=== PATIENT | male | born 1965 | race Caucasian/White ===

== ENCOUNTER 2023-11-24 04:01 | Day surgery (SDC) | payer OTHER ==
[2023-11-24] VITALS (226 sets, daily range): BP systolic 100–189; BP diastolic 61–113
[~2023-11-24] VITALS: Ht 190.5 cm; Wt 85.5 kg
[2023-11-24] MEDS ORDERED: diazePAM 5 MG/TAB PO PRN ×2 (07:30→08:30)
[2023-11-24] MEDS ORDERED: FAMOTIDINE 20 MG/TAB PO PRN (07:30)
[2023-11-24] MEDS ORDERED: cloNIDine HCL 0.1 MG/TAB PO PRN (07:30)
[2023-11-24] MEDS ORDERED: LACTATED RINGER'S 1,000 ML IV PRN ×3 (07:30→19:00)
[2023-11-24] MEDS ORDERED: CYANOCOBALAMIN 500 MCG/TAB ( B12) PO PRN (07:30)
[2023-11-24] MEDS ORDERED: SCOPOLAMINE 1.5 MG DIS TD PRN (07:30)
[2023-11-24] MEDS ORDERED: PANTOPRAZOLE SODIUM Sesquihydr 40 MG/TAB PO PRN (07:30)
[2023-11-24] MEDS ORDERED: ALBUTEROL SULFATE 2.5 MG VIAL IN PRN (07:30)
[2023-11-24] MEDS ORDERED: ASCORBIC ACID 4,000 MG in SODIUM CHLORIDE 0.9% 1,000 ML IV SCH (08:00)
[2023-11-24] MEDS ORDERED: GLYCOPYRROLATE 0.2 MG/ML IV ONE (08:15)
[2023-11-24 08:46] LABS: BASO% 0.3 % (0-3); HEMATOCRIT 40.7 % (39.0-50.0); HEMOGLOBIN 13.7 g/dl (14.0-18.0); IMMATURE GRANULOCYTES 0.2 % (0.0-5.0); LYMPH% 33.8 % (15-41); MEAN CELL VOLUME 93.1 fL CALC (80.0-100.0); MEAN CORPUSCULAR HGB 31.4 pG CALC (26.0-32.0); MEAN CORPUSCULAR HGB CONC 33.7 g/dL CAL (32.0-36.0); MONO% 12.3 % (2-13); NEUT# 3.04 thou/uL (1.82-7.42); NEUT% 51.4 % (42-76); RED BLOOD COUNT 4.37 mill/uL (4.70-6.10); RED CELL DISTRI WIDTH 11.6 % (11.5-15.5)
[2023-11-24 09:03] LABS: ALBUMIN 4.5 g/dL (3.2-5.0); BILIRUBIN, TOTAL 0.6 mg/dL (0.2-1.3); CREATININE 0.8 mg/dL (0.7-1.3); POTASSIUM 3.8 mmol/l (3.5-5.1); TOTAL PROTEIN 6.7 g/dL (6.3-8.2)
[2023-11-24] MEDS ORDERED: BENICAR40 MG PO (09:04)
[2023-11-24] MEDS ORDERED: METOPROLOL100 M1 PO (09:04)
[2023-11-24] MEDS ORDERED: ALFUZOSIN HCL E10 MG PO (09:05)
[2023-11-24] MEDS ORDERED: ALPRAZOLAM2 M1 PO (09:06)
[2023-11-24] MEDS ORDERED: LIDOCAINE HCL 1% (10MG/ML) 100 MG/10 ML MDV VT PRN ×2 (09:25)
[2023-11-24] MEDS ORDERED: SUCCINYLCHOLINE CHLORIDE 20 MG/ML 10ML VIAL IV PRN (09:25)
[2023-11-24] MEDS ORDERED: ONDANSETRON HCl 4 MG/2 ML SDV IV PRN ×3 (09:25→19:00)
[2023-11-24] MEDS ORDERED: diazePAM 5 MG/TAB VT PRN (09:25)
[2023-11-24] MEDS ORDERED: ROCURONIUM BROMIDE 10 MG/ML 5ML VIAL IV PRN (09:25)
[2023-11-24] MEDS ORDERED: MIDAZOLAM HCL 2 MG/2 ML VIAL IV PRN (09:25)
[2023-11-24] MEDS ORDERED: DiphenhydrAMINE HCL 50 MG/ML SDV IV PRN (09:25)
[2023-11-24] MEDS ORDERED: DEXAMETHASONE SODIUM PHOSPHATE PF 10 MG/ML SDV IV PRN ×2 (09:25→19:00)
[2023-11-24] MEDS ORDERED: cloNIDine HYDROCHLORIDE 100 MCG/ML 10 ML INJ IV PRN (09:25)
[2023-11-24] MEDS ORDERED: STERILE WATER FOR IRRIGATION 1,000 ML BTL IR PRN (09:25)
[2023-11-24] MEDS ORDERED: POTASSIUM CHLORIDE 20 MEQ/100 ML BAG IV PRN (09:25)
[2023-11-24] MEDS ORDERED: PROPOFOL 10 MG/ML 100ML VIAL IV PRN (09:25)
[2023-11-24] MEDS ORDERED: cloNIDine HCL 0.1 MG/TAB VT PRN (09:25)
[2023-11-24] MEDS ORDERED: MAGNESIUM SULFATE HEPTAHYDRATE 100 ML IV PRN (09:25)
[2023-11-24] MEDS ORDERED: NALTREXONE HCL 50 MG/TAB VT PRN (09:25)
[2023-11-24] MEDS ORDERED: PROPOFOL 100 ML IV PRN (09:25)
[2023-11-24] MEDS ORDERED: OCTREOTIDE ACETATE 100 MCG/VIAL SDV SC PRN (09:25)
[2023-11-24] MEDS ORDERED: THIAMINE HCL 100 MG/ML 2ML VIAL IV PRN (09:25)
[2023-11-24] MEDS ORDERED: LIDOCAINE HCL 1% (10MG/ML) 100 MG/10 ML MDV IV PRN (09:25)
[2023-11-24] MEDS ORDERED: KLONOPIN2 MG PO (17:07)
[2023-11-24] MEDS ORDERED: CLONIDINE0.1 MG PO (17:07)
[2023-11-24] MEDS ORDERED: NALTREXONE50 MG PO (17:07)
[2023-11-24] MEDS ORDERED: PROMETHAZINE HCL 12.5 MG in SODIUM CHLORIDE 0.9% 50 ML IV PRN (19:00)
[2023-11-24] MEDS ORDERED: HALOPERIDOL LACTATE 5 MG/ML SDV IV PRN (19:00)
[2023-11-24] MEDS ORDERED: ACETAMINOPHEN 1,000 MG/100 ML VIAL IV PRN (19:00)
[2023-11-24] MEDS ORDERED: PROMETHAZINE HCL 25 MG in SODIUM CHLORIDE 0.9% 50 ML IV PRN (19:00)
[2023-11-24] MEDS ORDERED: ACETAMINOPHEN 500 MG TAB PO PRN (19:00)
[2023-11-24] MEDS ORDERED: KETOROLAC TROMETHAMINE 30 MG/ML SDV IV PRN (19:00)
[2023-11-24] MEDS ORDERED: PATIENT' OWN MED CONTROLLED 1 EA DOSE IV PRN (21:00)
[2023-11-24] MEDS ORDERED: diazePAM 10 MG/2 ML VIAL IV PRN (21:00)
[2023-11-24] MEDS ORDERED: clonazePAM 1 MG/TAB PO SCH (23:00)
[2023-11-24] MEDS ORDERED: cloNIDine HCL 0.1 MG/TAB PO SCH (23:00)
[2023-11-25] MEDS ORDERED: clonazePAM 1 MG/TAB PO PRN ×2 (04:00→08:00)
[2023-11-25] MEDS ORDERED: cloNIDine HCL 0.1 MG/TAB PO PRN (04:00)
[2023-11-25 04:05] VITALS: BP 161/95
[2023-11-25 05:21] LABS: LYMPH% 16.2 % (15-41); MEAN CELL VOLUME 91.9 fL CALC (80.0-100.0); MEAN CORPUSCULAR HGB 31.3 pG CALC (26.0-32.0); MEAN CORPUSCULAR HGB CONC 34.1 g/dL CAL (32.0-36.0); NEUT# 6.85 thou/uL (1.82-7.42); NEUT% 77.8 % (42-76); RED BLOOD COUNT 4.79 mill/uL (4.70-6.10); RED CELL DISTRI WIDTH 11.5 % (11.5-15.5)
[2023-11-25 05:36] LABS: ALBUMIN 4.4 g/dL (3.2-5.0); BILIRUBIN, TOTAL 0.8 mg/dL (0.2-1.3); CREATININE 0.6 mg/dL (0.7-1.3); MAGNESIUM 2.2 mg/dL (1.6-2.3); POTASSIUM 3.8 mmol/l (3.5-5.1); TOTAL PROTEIN 6.7 g/dL (6.3-8.2)
[2023-11-25] MEDS ORDERED: NALTREXONE HCL 50 MG/TAB PO SCH (08:00)
[2023-11-25] MEDS ORDERED: ACETAMINOPHEN 325 MG/TAB PO SCH (08:00)
[2023-11-25] MEDS ORDERED: PANTOPRAZOLE SODIUM Sesquihydr 40 MG/TAB PO SCH (08:00)
[2023-11-25] MEDS ORDERED: cloNIDine HCL 0.1 MG/TAB PO SCH ×2 (08:00→21:00)
[2023-11-25 08:23] VITALS: BP 112/69
[2023-11-25] MEDS ORDERED: MAGNESIUM OXIDE 400 MG/TAB PO PRN (09:00)
[2023-11-25] MEDS ORDERED: ACETAMINOPHEN 500 MG TAB PO PRN (09:00)
[2023-11-25] MEDS ORDERED: Cholecalciferol 2,000 UNIT/TAB PO PRN (09:00)
[2023-11-25] MEDS ORDERED: POTASSIUM CHLORIDE 20 MEQ/TAB PO ONE (09:40)
[2023-11-25] MEDS ORDERED: cloNIDine HCL 0.1 MG/TAB PO ONE (12:30)
[2023-11-25] MEDS ORDERED: NALTREXONE HCL 50 MG/TAB PO ONE (12:30)
[2023-11-25 14:08] VITALS: BP 124/71
[2023-11-25] MEDS ORDERED: LACTATED RINGER'S 1,000 ML IV SCH (14:30)
[2023-11-25] MEDS ORDERED: POTASSIUM CHLORIDE 20 MEQ/TAB PO SCH (14:30)
[2023-11-25 20:55] VITALS: BP 138/77
[2023-11-25 20:59] VITALS: BP 138/77
[2023-11-25] MEDS ORDERED: clonazePAM 1 MG/TAB PO SCH (21:00)
[2023-11-26 04:33] VITALS: BP 157/82
[2023-11-26 05:56] LABS: HEMATOCRIT 41.4 % (39.0-50.0); HEMOGLOBIN 14.5 g/dl (14.0-18.0); MEAN CELL VOLUME 91.2 fL CALC (80.0-100.0); MEAN CORPUSCULAR HGB 31.9 pG CALC (26.0-32.0); RED BLOOD COUNT 4.54 mill/uL (4.70-6.10); RED CELL DISTRI WIDTH 11.7 % (11.5-15.5)
[2023-11-26 06:14] LABS: CREATININE 0.6 mg/dL (0.7-1.3); POTASSIUM 3.6 mmol/l (3.5-5.1); TOTAL PROTEIN 6.3 g/dL (6.3-8.2)
[2023-11-26 07:28] VITALS: BP 151/90
[2023-11-26] MEDS ORDERED: NALTREXONE HCL 50 MG/TAB PO SCH ×2 (08:00→09:00)
[2023-11-26] MEDS ORDERED: Cholecalciferol 2,000 UNIT/TAB PO PRN (09:00)
[2023-11-26] MEDS ORDERED: ACETAMINOPHEN 500 MG TAB PO PRN (09:00)
[2023-11-26] MEDS ORDERED: MAGNESIUM OXIDE 400 MG/TAB PO PRN (09:00)
[2023-11-26] MEDS ORDERED: POTASSIUM CHLORIDE 20 MEQ/TAB PO SCH (10:30)
== END 2023-11-26 10:54 | disposition home or self-care (01) | DRG 897 ==
LOC: ANR 04:01 → MS2 04:02 → ANR 08:00
PROVIDERS: ATTEND Anesthesiology
DX: F11.20 Opioid dependence, uncomplicated (principal)
CPT/HCPCS: J0131; J1100; J2354; J3475; J3490